=== PATIENT | male | born 2000 | race Caucasian/White ===

== ENCOUNTER 2019-01-04 13:19 | Emergency (ER) | payer SELFPAY ==
[~2019-01-04] VITALS: Ht 175.3 cm; Wt 70.5 kg
[2019-01-04 13:19] VITALS: TEMP 99.4
[2019-01-04 14:09] LABS: ALBUMIN 4.3 gm/dL (3.5-5.0); BILIRUBIN,TOTAL 1.3 mg/dL (0.0-1.0); CALCIUM 9.9 mg/dL (8.4-10.2); CREATININE, serum 0.69 mg/dL (0.66-1.25); POTASSIUM 3.4 mmol/L (3.4-5.0); TOTAL PROTEIN 7.8 gm/dL (6.4-8.2)
[2019-01-04 14:10] LABS: HEMATOCRIT 42.4 % (36.0-47.0); HEMOGLOBIN 15.2 g/dl (12.5-16.1); MEAN CELL VOLUME 93 fl (80.0-95.0); MEAN CORPUSCULAR HEMOGLOBIN 33 pg (26.0-32.0); MEAN CORPUSCULAR HGB CONC 36 g/dl (33.0-37.0); MEAN PLATELET VOLUME 10.9 fl (7.4-10.4); PLATELET COUNT 52 K/mm3 (130-400); RED BLOOD COUNT 4.56 M/mm3 (4.20-5.60); REDCELL DISTRIBUTION WIDTH-CV 12.9 % (11.5-14.5)
[2019-01-04 14:19] LABS: BAND 3 % (0-10); LYMPHOCYTE 3 % (20.0-51.0); NEUTROPHILS 89 % (42.0-75.2)
[2019-01-04 14:20] LABS: PLATELET ESTIMATE DECREASED (NORMAL)
[2019-01-04 14:25] LABS: PROLACTIN 15.8 ng/mL (3.7-17.9)
[2019-01-04 15:00] VITALS: BP 125/91; PULSE 84
== END 2019-01-04 15:00 | disposition home or self-care (01) ==
LOC: COL.ER 13:19
PROVIDERS: Family Medicine
DX: F10.229 Alcohol dependence with intoxication, unspecified (principal); E86.0 Dehydration; R55 Syncope and collapse
CPT/HCPCS: J7030